=== PATIENT | female | born 1965 | race Two or more races ===

== ENCOUNTER 2023-01-13 23:28 | Inpatient (IN) | payer BC, OTHER ==
[~2023-01-13] VITALS: Ht 165.1 cm; Wt 59.5 kg
[2023-01-13 23:55] VITALS: PULSE 75; RESP 22; O2SAT 97
[2023-01-14 00:49] LABS: Albumin 4.2 g/dL (3.4-5.0); BUN/Creatinine Ratio 21.7 (10.0-20.0); Basophils # (auto) 0 10 ^3/uL (0-0.2); Basophils % (auto) 0.2 % (0.0-2.0); Calcium 9.2 mg/dL (8.5-10.1); Eosinophils # (auto) 0 10 ^3/uL (0-0.8); Eosinophils % (auto) 0.3 % (0.0-7.0); Hematocrit 45.4 % (36.0-46.0); Hemoglobin 15.4 g/dL (12.2-16.2); Lymphocytes # (auto) 0.5 10 ^3/uL (0.4-5.4); Mean Corpuscular Hemoglobin 30.5 pg (28.0-32.0); Mean Corpuscular Hgb Conc. 33.8 g/dL (32.0-36.0); Mean Corpuscular Volume 90.1 fL (80.0-100.0); Monocytes # (auto) 0.3 10 ^3/uL (0-1.3); Monocytes % (auto) 2.4 % (0.0-12.0); Neutrophils # (auto) 9.7 10 ^3/uL (1.6-8.6); Neutrophils % (auto) 92.1 % (37.0-80.0); Potassium 4.1 mmol/L (3.5-5.1); Red Blood Cells 5.04 10^6/uL (4.0-5.20); Red Cell Distribution Width 12.7 % (11.8-14.3); White Blood Cell 10.5 10^3/uL (4.4-10.8)
[2023-01-14 00:52] LABS: Bilirubin, Total 0.9 mg/dL (0.2-1.0); Total Protein 8.6 g/dL (6.4-8.2)
[2023-01-14] MEDS ORDERED: LACTATED RINGER'S 2,100 ML IV ONE (06:30)
[2023-01-14 07:35] VITALS: PULSE 77; RESP 17; O2SAT 97
[2023-01-14] MEDS ORDERED: ACETAMINOPHEN 325 MG TAB PO ONE (09:30)
[2023-01-14] MEDS ORDERED: ACETAMINOPHEN 500 MG TAB PO ONE (09:30)
[2023-01-14] MEDS ORDERED: MORPHINE SULFATE INJ 2 MG/ml SYRG IV PRN (11:00)
[2023-01-14] MEDS ORDERED: ONDANSETRON HCL 4 MG/2 ML VIAL IV PRN (11:00)
[2023-01-14] MEDS ORDERED: NITROGLYCERIN 0.4 MG SL TAB SL PRN (11:00)
[2023-01-14] MEDS: SODIUM CHLORIDE 0.9% 1,000 ML IV SCH (11:00)
[2023-01-14] MEDS ORDERED: HYDROcodone-ACET 5/325MG TAB PO PRN (11:00)
[2023-01-14] MEDS ORDERED: DOCUSATE SOD 100 MG CAP PO PRN (11:00)
[2023-01-14] MEDS ORDERED: METO-289 PO (11:08)
[2023-01-14] MEDS ORDERED: LOSA50TA46 PO (11:08)
[2023-01-14] MEDS ORDERED: METOPROLOL SUCCINATE XL 50 MG TAB PO SCH (11:15)
[2023-01-14] MEDS ORDERED: LOSARTAN POTASSIUM 50 MG TAB PO SCH (11:15)
[2023-01-14 12:41] VITALS: BP 100/56; PULSE 79; RESP 16; TEMP 98.3; O2SAT 97
[2023-01-14 13:40] VITALS: BP 100/56; PULSE 79; RESP 16; TEMP 98.3; O2SAT 97
[2023-01-14 14:00] LABS: Magnesium 1.9 mg/dL (1.6-2.6)
[2023-01-14 17:00] VITALS: BP 101/58; PULSE 64; RESP 16; TEMP 97.4; O2SAT 95
[2023-01-14 20:00] VITALS: PULSE 63; RESP 18; O2SAT 97
[2023-01-14 21:58] LABS: Urine Bacteria FEW /hpf (None Seen); Urine Blood Negative /uL (Negative); Urine Specific Gravity 1.006 (1.001-1.035); Urine WBC 7 /hpf (0 - 5)
[2023-01-14 22:00] VITALS: BP 112/70; PULSE 72; RESP 18; TEMP 97.8; O2SAT 97
[2023-01-14 22:28] LABS: Alcohol, Urine < 3.0 mg/dL (0-10); Amphetamine Screen, Urine NEGATIVE (NEGATIVE); Barbiturate Scree,Urine NEGATIVE (NEGATIVE); Benzodiazephine Screen, Urine NEGATIVE (NEGATIVE); Cannabinoid Screen, Urine NEGATIVE (NEGATIVE); Cocaine Screen, Urine NEGATIVE (NEGATIVE); Opiate Scree,Urine NEGATIVE (NEGATIVE); Phencyclidine Screen, Urine NEGATIVE (NEGATIVE)
[2023-01-15] VITALS (9 sets, daily range): BP systolic 123–162; BP diastolic 73–97; PULSE 63–89; RESP 16–20; TEMP 97.2–98.4; O2SAT 95–98
[2023-01-15] MEDS: SODIUM CHLORIDE 0.9% 1,000 ML IV SCH ×2 (03:46→19:53)
[2023-01-15] MEDS: hydrALAZINE HCL 20 MG/ML VL IV PRN ×2 (05:25→08:44)
[2023-01-15 05:41] LABS: Calcium 8.4 mg/dL (8.5-10.1); Potassium 3.5 mmol/L (3.5-5.1)
[2023-01-15 05:47] LABS: Albumin 3.1 g/dL (3.4-5.0); BUN/Creatinine Ratio 18.1 (10.0-20.0); Bilirubin, Total 0.3 mg/dL (0.2-1.0); Total Protein 6.7 g/dL (6.4-8.2)
[2023-01-15 05:53] LABS: Basophils # (auto) 0 10 ^3/uL (0-0.2); Basophils % (auto) 0.3 % (0.0-2.0); Eosinophils # (auto) 0.1 10 ^3/uL (0-0.8); Eosinophils % (auto) 1.7 % (0.0-7.0); Hematocrit 36.6 % (36.0-46.0); Hemoglobin 12.5 g/dL (12.2-16.2); Lymphocytes # (auto) 2.4 10 ^3/uL (0.4-5.4); Lymphocytes % (auto) 50.6 % (10.0-50.0); Mean Corpuscular Hemoglobin 30.4 pg (28.0-32.0); Mean Corpuscular Hgb Conc. 34.3 g/dL (32.0-36.0); Mean Corpuscular Volume 88.6 fL (80.0-100.0); Monocytes # (auto) 0.5 10 ^3/uL (0-1.3); Monocytes % (auto) 9.9 % (0.0-12.0); Neutrophils # (auto) 1.8 10 ^3/uL (1.6-8.6); Neutrophils % (auto) 37.5 % (37.0-80.0); Nucleated Red Blood Cells % 0.1 %; Red Blood Cells 4.13 10^6/uL (4.0-5.20); Red Cell Distribution Width 12.7 % (11.8-14.3); White Blood Cell 4.8 10^3/uL (4.4-10.8)
[2023-01-15] MEDS ORDERED: METOPROLOL SUCCINATE XL 50 MG TAB PO SCH (10:00)
[2023-01-15] MEDS ORDERED: LOSARTAN POTASSIUM 50 MG TAB PO SCH ×2 (10:00→10:45)
[2023-01-15] MEDS: ACETAMINOPHEN 325 MG TAB PO PRN (10:42)
[2023-01-15] MEDS: METOPROLOL TARTRATE 25 MG TAB PO SCH ×2 (10:42→21:26)
[2023-01-16] VITALS (7 sets, daily range): BP systolic 111–142; BP diastolic 57–88; PULSE 58–74; RESP 16–96; TEMP 97.3–98.4; O2SAT 96–98
[2023-01-16] MEDS: METOPROLOL TARTRATE 25 MG TAB PO SCH (10:06)
[2023-01-16] MEDS: SODIUM CHLORIDE 0.9% 1,000 ML IV SCH (13:05)
[2023-01-16] MEDS: ACETAMINOPHEN 325 MG TAB PO PRN (18:39)
== END 2023-01-16 21:30 | disposition home health service (06) | DRG 312 ==
LOC: ER 23:28 → EDBD 23:28 → TELE 01-14 10:53 → TELE-CENTR 01-14 13:22 → TELE-EAST 01-14 17:42
PROVIDERS: ADMIT Internal Medicine; ATTEND Internal Medicine
DX: R55 Syncope and collapse (principal); E86.0 Dehydration; K52.9 Noninfective gastroenteritis and colitis, unspecified; I10 Essential (primary) hypertension; E11.9 Type 2 diabetes mellitus without complications; I25.10 Atherosclerotic heart disease of native coronary artery without angina pectoris; J42 Unspecified chronic bronchitis; Z82.49 Family history of ischemic heart disease and other diseases of the circulatory system
CPT/HCPCS: 36415; 70450; 71045; 80053; 80061; 80307; 80320; 81001; 83036; 83735; 84443; 84484; 85025; 93306; G0378